=== PATIENT | female | born 1980 | race Caucasian/White ===

== ENCOUNTER 2017-11-03 11:23 | Emergency (ER) | payer BC ==
[~2017-11-03 11:23] MED LIST: OXYC-360 PO; PRENTAB72 PO
--- NOTE | 2017-11-03 12:21 | PD ---
HPI Chief Complaint ctx at night Date Seen: Nov 03, 2017 Time Seen: 12:15 Travel History International Travel<30 Days: No Contact w/Intl Traveler<30Days: No Known Affected Area: No History of Present Illness HPI 37y/o @ 27.1wks. She has PNC with Dr. Luo. She reports that for the past few nights, btw 1-5am she has felt abdominal pain and she can't lay on her R or L sides. She currently has no pain. No LOF, VB. +FM. She has a h/o CSx1. She reports that she is drinking plenty of water. Weeks Gestation: 1 Para: 2 History Past Medical History Medical History: Denies Significant Hx Obstetric History Obstetric History 1. CS 2. current Past Surgical History Narrative Surgical CS Family History Family History: Negative Social History Alcohol Use: No Tobacco Use: No Substance Abuse: No Allergies-Medications (Allergen,Severity, Reaction): Coded Allergies: No Known Allergies (Unverified , 02/21/13) Home Meds Reported Medications Oxycodone/Acetaminophen (Percocet) 5 Mg/325 Mg Tab, 1 TAB PO Q4HPRN, #50 FOR PAIN 02/24/13 Vit W/ Ferrous Fumara () Tab, 1 PO 02/21/13 Review of Systems Except as stated in HPI: all other systems reviewed are Neg Physical Exam Narrative General: well developed, well nourished, no acute distress HEENT: normocephalic atraumatic, extraocular movements intact, neck supple Abdomen: soft, gravid, nontender, nondistended Uterus: fundus above umbilicus Extremities: full range of motion Skin: normal coloration, no rashes, no suspicious skin lesions noted Neurologic: cranial nerves 2-12 grossly intact, normal muscle tone, normal gait Psychiatric: normal mood and affect, appropriate FHTs: 130s, age appropriate, mild variable decel [place]: quiet Cvx: deferred Data Data Vital Signs Reviewed: Yes Orders Orders Vital Signs (Adult) .ON ADMISSION (11/03/17 12:14) ^ Labor Status (11/03/17 12:14) Urinalysis - C+S If Indicated (11/03/17 12:14) ^ Non Stress Test (11/03/17 12:14) MDM Plan 37y/o @ 27.1wks with abdominal pain at night, h/o CSx1, AMA. -- differential includes BH ctx, UTI, constipation, and adhesive dz -- UA ordered and neg -- toco quiet -- FHTs age appropriate Dispo: d/c home with precautions, continue oral hydration Diagnosis Diagnosis: Primary Impression: 27 weeks gestation of Additional Impression: Abdominal pain affecting Pam James MD Nov 03, 2017 12:21
[2017-11-03 12:39] LABS: BACTERIA, URINE RARE /hpf; BILIRUBIN, URINE NEG (NEG); BLOOD, URINE NEG (NEG); GLUCOSE,URINE NEG (NEG); KETONE, URINE NEG (NEG); NITRITE,URINE NEG (NEG); PH, URINE 6.5 (5.0-8.5); SQUAMOUS EPITHELIAL CELL URINE 4 /hpf (0-5); URINE COLOR LIGHT-YELLOW (YELLW/STRAW); URINE LEUKOCYTE ESTERASE NEG (NEG)
== END 2017-11-03 12:58 | disposition home or self-care (01) ==
LOC: HOBED 11:23
DX: O26.892 Other specified pregnancy related conditions, second trimester (principal); R10.9 Unspecified abdominal pain; Z3A.27 27 weeks gestation of pregnancy
CPT/HCPCS: 81001; 99283

== ENCOUNTER 2018-01-24 04:03 | Emergency (ER) | payer BC ==
[~2018-01-24] VITALS: Ht 157.5 cm; Wt 85.7 kg
[2018-01-24] MEDS ORDERED: PREN1TAB45 PO (04:44)
[2018-01-24] MEDS ORDERED: FERR325T18 PO (04:44)
--- NOTE | 2018-01-24 04:49 | PD ---
HPI Chief Complaint Contractions Date Seen: Jan 24, 2018 Time Seen: 04:40 Travel History International Travel<30 Days: No Contact w/Intl Traveler<30Days: No Known Affected Area: No History of Present Illness HPI 37-year-old white female previous now at 38 weeks and planning to this baby complains of contractions, no bleeding leakage. NST is reactive she is susan every 2-3 minutes painfully Weeks Gestation: 38 Para: 1 : 2 History Obstetric History Obstetric History Previous Past Surgical History Narrative Surgical Social History Alcohol Use: No Tobacco Use: No Substance Abuse: No Allergies-Medications (Allergen,Severity, Reaction): Coded Allergies: No Known Allergies (Unverified Adverse Reaction, Unknown, 01/24/18) Home Meds Reported Medications Ferrous Sulfate (Ferrous Sulfate) 325 Mg (65 Mg Iron) Tablet, 325 MG PO DAILY for Nutritional Supplement, #30 TAB 0 Refills 01/24/18 Vit,Calc76/Iron/Folic (Pnv 29-1 Tablet) 29 Mg Iron-1 Mg Tablet, 1 TAB PO DAILY 01/24/18 Discontinued Reported Medications Oxycodone/Acetaminophen (Percocet) 5 Mg/325 Mg Tab, 1 TAB PO Q4HPRN, #50 FOR PAIN 02/24/13 Vit W/ Ferrous Fumara () Tab, 1 PO 02/21/13 Review of Systems General / Constitutional: No: Fever, Weight Gain, Chills, Other Eyes: No: Diploplia, Blurred Vision, Visual changes, Pain, Photophobia HENT: No: Headaches, Vertigo, Lightheadedness Cardiovascular: No: Irregular Rhythm, Chest Pain or Discomfort, Palpitations, Tachycardia, Syncope, Varicosities, Edema, Cyanosis Respiratory: No: Cough, Short of Breath, Other Gastrointestinal: Abdominal Pain, No: Nausea, Vomiting, Diarrhea Genitourinary: No: Decreased Urinary Output, Oliguria Musculoskeletal: No: Limited ROM, Weakness, Cramping, Edema, Pain Skin: No Rash, No Itching, No Dryness, No Lumps, No Change in Pigmentation, No Change in Nails, No Alopecia, No Lesions Neurologic: No: Weakness, Dizziness, Syncope, Focal Abnormalities, Coordination Problem, Headache, Slurred Speech, Seizures Psychiatric: No: Depression, Suicidal Ideations, Homicidal Ideation Endocrine: No: Heat Intolerance, Cold Intolerance, Polydipsia, Polyuria, Other Physical Exam Narrative GENERAL: Well-nourished, well-developed patient. SKIN: Warm and dry. HEAD: Normocephalic and atraumatic. EYES: No scleral icterus. No injection or drainage. ENT: No nasal drainage noted. Mucous membranes pink. Airway patent. NECK: Supple, trachea midline. No JVD. CARDIOVASCULAR: Regular rate and rhythm without murmurs, gallops, or rubs. RESPIRATORY: Breath sounds equal bilaterally. No accessory muscle use. BREASTS: Bilateral exam showed no masses , no retractions, no nipple discharge. ABDOMEN/GI: Abdomen soft, non-tender, bowel sounds present, no rebound, no guarding Gravid to [38-] weeks size Fundal Height: [-38] GENITOURINARY: External Genitalia: intact and normal in appearance BUS glands: [-] Cervix: [-post] Dilatation: [1-] Effacement: [60-] Station: [-2] Presentation: [vtx-] Membranes: [intact ] Uterine Contractions: [-q 2-3 min] FHT's: Category: [1-] Baseline: [-133] Reactive: [R-] Variability: [mod-] Decels: [0-] EXTREMITIES: No cyanosis or edema. BACK: Nontender without obvious deformity. No CVA tenderness. NEUROLOGICAL: Awake and alert. Motor and sensory grossly within normal limits. Five out of 5 muscle strength in all muscle groups. Normal speech. Data Data Group B Strep: Positive MDM Interpretation(s) This patient is 37-year-old white female previous who would like to this , she is 38--39 weeks and is followed by Dr. Luo for care. On OB ED she was evaluated cervix is 1/60/-2 and she is susan every 2 -3 minutes NST is reactive Plan Because patient lives in [place] would let her walk for an hour and recheck her. Diagnosis Diagnosis: Primary Impression: Uterine contractions during Additional Impressions: Previous section 38 weeks gestation of Disposition: DISCHARGE HOME Condition: Stable Romain Keller II, MD Jan 24, 2018 04:49
== END 2018-01-24 05:44 | disposition home or self-care (01) ==
LOC: HOBED 04:03
DX: O99.89 Other specified diseases and conditions complicating pregnancy, childbirth and the puerperium (principal); N85.8 Other specified noninflammatory disorders of uterus; O34.219 Maternal care for unspecified type scar from previous cesarean delivery; Z3A.38 38 weeks gestation of pregnancy
CPT/HCPCS: 59025

== ENCOUNTER 2018-02-01 18:01 | Inpatient (IN) | END 2018-02-03 12:50 | disposition home or self-care (01) | LOC: H1EA 18:01 | PROVIDERS: ADMIT Obstetrics & Gynecology; ATTEND Obstetrics & Gynecology ==